=== PATIENT | female | born 1995 | race African-American/Black ===

== ENCOUNTER 2016-07-02 06:28 | Inpatient (IN) ==
[2016-07-02] MEDS ORDERED: BUTORPHANOL 2 MG/ML VIAL IV PRN (06:58)
[2016-07-02] MEDS ORDERED: ONDANSETRON 4 MG/2 ML VIAL IV PRN (06:58)
[2016-07-02] MEDS ORDERED: LACTATED RINGERS 500 ML IV PRN (06:58)
[2016-07-02] MEDS: LACTATED RINGERS 1,000 ML IV SCH ×2 (07:08→16:08)
[2016-07-02 07:17] LABS: Basophils % 0.2 % (0.0-0.8); Eosinophils # 0.1 10*3/uL (0.0-0.87); Hemoglobin 9.8 GM/DL (12.0-16.0); Immature Granulocytes % 0.7 %; Immature Granulocytes Absolute 0.08 #; Lymphocytes # 1.7 10*3/uL (1.4-4.0); Lymphocytes % 15.3 % (21.3-54.2); Mean Corpuscular HGB Conc 32.7 GM/DL (32-36); Mean Corpuscular Hemoglobin 26 PG (27-34); Mean Corpuscular Volume 80.6 FL (87-102); Mean Platelet Volume 9.3 FL (9.6-12.0); Monocytes % 8.5 % (1.7-12.7); Neutrophils # 8.3 10*3/uL (1.4-7.4); Neutrophils % 74.3 % (38.7-73.9); Platelet Count 252 T/CUMM (130-400); Red Blood Count 3.72 MC/CUMM (3.8-5.5); Red Cell Distribution Width 14.9 % (9.3-17.3); White Blood Count 11.2 T/CUMM (4-12)
[2016-07-02] MEDS: OXYTOCIN/LR 20 UNIT/1,000 ML BAG IV SCH (07:33)
[2016-07-02] MEDS ORDERED: FAMOTIDINE 20 MG/2 ML VIAL IV ONE (16:39)
[2016-07-02] MEDS ORDERED: PROMETHAZINE 25 MG/1 ML VIAL IM ONE (16:39)
[2016-07-02] MEDS ORDERED: CITRIC ACID/SODIUM CITRATE 30 ML UDCUP PO ONE (16:39)
[2016-07-02] MEDS ORDERED: hydrOXYzine HCL 25 MG/1 ML VIAL IM PRN (16:39)
[2016-07-02] MEDS ORDERED: ePHEDrine 50 MG/ML AMP IV PRN (16:39)
[2016-07-02] MEDS ORDERED: fentaNYL 2 MCG/ROPIV 0.2% EPID 150 ML EPIDURAL SCH (16:39)
[2016-07-02] MEDS ORDERED: diphenhydrAMINE 50 MG/1 ML VIAL IV PRN ×2 (16:39)
[2016-07-02 18:47] LABS: Apearance,Urine CLEAR (Clear); Bilirubin,Urine Negative (Negative); Blood, Urine Small mg/dL (Negative); Glucose,Urine (UA) Negative (Negative); Ketones,Urine 80 mg/dL (Negative); Mucus,Urine Occasional /LPF (Occasional); Nitrite,Urine Negative (Negative); Protein,Urine Negative; RBC,Urine 3 /HPF (0-4); Squamous Epithelial Cell,Urine Occasional /HPF (0-10); Urine Color Yellow (Yellow); Urine Specific Gravity 1.014 (1.001-1.035); Urine Urobilinogen < 2.0 EU/DL (0.2-1.0); WBC,Urine <1 /HPF (0-6)
[2016-07-02] MEDS ORDERED: LIDOCAINE 1% 50 ML VIAL ONE (23:58)
[2016-07-02] MEDS ORDERED: METHYLERGONOVINE 0.2 MG/1 ML AMP ONE (23:58)
[2016-07-03] MEDS ORDERED: miSOPROStol 200 MCG TABLET ONE (00:57)
[2016-07-03] MEDS: OXYTOCIN/LR 20 UNIT/1,000 ML BAG IV SCH (01:00)
[2016-07-03] MEDS ORDERED: LANOLIN 50% CREAM 0.3 OZ TUBE TOP PRN (01:39)
[2016-07-03] MEDS ORDERED: MEASLES/MUMPS/RUBELLA VACCINE 0.5 ML VIAL SUBCUT ONE (01:39)
[2016-07-03] MEDS ORDERED: RHO(D) IMMUNE GLOBULIN 300 MCG SYRINGE IM ONE (01:39)
[2016-07-03] MEDS ORDERED: OXYTOCIN/LR 20 UNIT/1,000 ML BAG IV ONE (01:39)
[2016-07-03] MEDS ORDERED: oxyCODONE/ACETAMINOPHEN 5-325 MG TABLET PO PRN (01:39)
[2016-07-03] MEDS ORDERED: WITCH HAZEL PADS 100/JAR TOP PRN (01:39)
[2016-07-03] MEDS ORDERED: ONDANSETRON 4 MG/2 ML VIAL IV PRN (01:39)
[2016-07-03] MEDS ORDERED: HYDROCORTISONE 2.5% RECTAL CREAM 30 GM TUBE TOP PRN (01:39)
[2016-07-03] MEDS ORDERED: BENZOCAINE 20%/MENTHOL 0.5% SPRAY 56 GM CAN TOP PRN (01:39)
[2016-07-03] MEDS ORDERED: BISACODYL 10 MG SUPP RECTAL PRN (01:39)
[2016-07-03] MEDS ORDERED: DIPH/TET/ACEL PERT BOOSTER VACCINE 0.5 ML VIAL IM ONE (01:39)
[2016-07-03] MEDS ORDERED: ACETAMINOPHEN 325 MG TABLET PO PRN (01:39)
--- NOTE | 2016-07-03 01:39 | History and Physical Update ---
History and Physical Update - Dictation Physical: refer to scanned H&P - Physical Exam Mental Status: alert and oriented Heart: regular rate and rhythm Lung: clear to auscultation Abdomen: within normal limits Vitals: within normal limits History and Physical Changes: at 40w1d by 30 wk US , late onset care, otherwise no complications , admitted for induction. GBS negative.
--- NOTE | 2016-07-03 07:41 | Discharge Summary ---
Hospital Course - Hospital Course Hospital Course: Pt admitted for induction at 40w1d with late care. She delivered on via vacuum assisted delivery. Second degree MLE with ext into capsule and left lateral vaginal wall lacerations repaired. Her course has been unremarkable. Discharge Plan - Discharge Data Disposition: Disch To Home/Self Care Condition at Discharge: Stable Discharge Diet: regular diet Activity: other (pelvic rest x 6 wks) Hygiene: may shower Driving: no restrictions Contact your physician if you experience:: fever over 101, Difficulty voiding, Redness or swelling, Nausea/Vomiting, Shortness of breath, Bleeding, pain uncontrolled by pain medications - Discharge Medications New Ibuprofen Tab [Motrin Tab] 800 mg PO Q6H PRN #30 tablet PRN Reason: Pain Moderate (4-7) oxyCODONE/ACETAMINOPHEN 5-325 [Percocet 5-325] 2 tablet PO Q6H PRN #20 tablet PRN Reason: Pain Severe (8-10) No Action Vit/Iron Fumarate/FA [ Tablet] 1 each PO DAILY - Follow Up or Referral Follow Up: Rain Eaton DO [Physician] - - Forms/Instructions Exam - Constitutional Vitals: Period Temp Pulse Resp BP Sys/Rose Pulse Ox Last 24 Hr 97.0 F-98.8 F 82-123 18-22 119-146/56-91 97-99 General appearance: morbidly obese - Head Head exam: Present: normal inspection, normocephalic - Eye Eye exam: Present: EOMI - Respiratory Respiratory exam: Present: clear to auscultation bilaterally - Cardiovascular Cardiovascular exam: Present: regular rate and rhythm - GI/Abdominal GI/Abdominal exam: Present: soft (fundus firm, nontender) - Extremities Exam Extremities exam: Present: normal inspection - Neurological Exam Neurological exam: Present: alert, oriented X3 - Psychiatric Psychiatric exam: Present: normal affect, normal mood - Skin Skin exam: Present: normal color, warm Discharge Results Procedures and tests throughout hospitalization: Pending Orders 07/04/16 04:00 Comp Blood Count Auto Diff IN AM Labs on day of discharge: Labs from last 24 hours 07/02/16 07/02/16 17:30 07:09 Urine Color Yellow Urine Appearance Clear Urine pH 6.0 Ur Specific Waves 1.014 Urine Protein Negative Urine Glucose (UA) Negative Urine Ketones 80 Urine Blood Small Urine Nitrate Negative Urine Bilirubin Negative Urine Urobilinogen < 2.0 H Urine Leukocytes Negative Urine RBC 3 Urine WBC <1 Ur Squamous Epith Cells Occasional Urine Mucus Occasional Ur Culture Indicated? Not indicated Blood Type O POSITIVE Antibody Screen Negative DS: Provider Date of admission: 07/02/16 06:59 Primary care physician: . No PCP Attending physician on admission: Rain Eaton DO Consults: 07/02/16 07:56 Consult to Dietitian [CONS] Routine Reason for Dietitian: Dietary Consult 07/03/16 01:39 Consult to Yarder Operator [CONS] Routine Consult Yarder Operator: Breast Feeding Discharging clinician: Rain Eaton DO Expected date of discharge: 07/05/16
--- NOTE | 2016-07-03 08:18 | Anesthesia ---
Anesthesia Post OP - Post Ansesthetic Evaluation Patient seen in post op: Yes Resp: within normal limits CV: within normal limits Mental: within normal limits Temp: within normal limits [id number]: within normal limits Nausea and Vomiting: within normal limits Pain: within normal limits
[2016-07-03] MEDS: DOCUSATE SODIUM 100 MG CAPSULE PO SCH (21:33)
[2016-07-03] MEDS: oxyCODONE/ACETAMINOPHEN 5-325 MG TABLET PO PRN (22:05)
[2016-07-04] MEDS: oxyCODONE/ACETAMINOPHEN 5-325 MG TABLET PO PRN ×3 (04:00→19:40)
[2016-07-04 06:38] LABS: Basophils % 0.2 % (0.0-0.8); Eosinophils # 0.2 10*3/uL (0.0-0.87); Eosinophils % 1.4 % (0.00-10.9); Hematocrit 20.8 VOL% (35.7-47.0); Hemoglobin 6.6 GM/DL (12.0-16.0); Immature Granulocytes % 0.7 %; Immature Granulocytes Absolute 0.08 #; Lymphocytes # 2.3 10*3/uL (1.4-4.0); Mean Corpuscular HGB Conc 31.7 GM/DL (32-36); Mean Corpuscular Hemoglobin 26 PG (27-34); Mean Corpuscular Volume 83.2 FL (87-102); Mean Platelet Volume 10.1 FL (9.6-12.0); Monocytes % 8.3 % (1.7-12.7); Neutrophils # 8.3 10*3/uL (1.4-7.4); Neutrophils % 70.4 % (38.7-73.9); Platelet Count 180 T/CUMM (130-400); Red Cell Distribution Width 14.9 % (9.3-17.3); White Blood Count 11.8 T/CUMM (4-12)
[2016-07-04] MEDS: FERROUS SULFATE 325 MG TABLET PO SCH ×2 (09:02→20:00)
[2016-07-04] MEDS: DOCUSATE SODIUM 100 MG CAPSULE PO SCH ×2 (09:02→20:00)
--- NOTE | 2016-07-04 11:49 | Pathology Report from [facility] ---
ACCESSION # : [id number] PATIENT NAME : Davy Ashley ORDERING DR : REKHA LANDERS CLINICAL HX: IUP 40 weeks, late care POST-OP DX: Same SPECIMEN INFO: Placenta GROSS DESCRIPTION: Received fresh labeled "DAVY ASHLEY & PLACENTA" is a 553 gm placenta measuring 19.5 x 14.5 x 3.0 cm. The membranes are pink cardenas and translucent. The umbilical cord measures 51.0 cm, contains three vessels and is pericentrally inserted. The surface is blue colvin with a few small areas of subchorionic fibrin noted. The maternal surface is intact with a few calcifications and an area of fibrin noted measuring 2.3 x 1.6 cm. Sections submitted A- membranes and cord, B- and maternal surfaces. DIAGNOSIS FOR DAVY ASHLEY: PLACENTA, MEMBRANES, UMBILICAL CORD: Focal placental infarction with dystrophic calcification, attached fibrin clot. Tri- vessel umbilical cord, pericentrally inserted. Membranes with focal acute and chronic inflammation and attached blood. SERVICE DATE: 07/03/2016 REPORT DATE: 07/04/2016 PATHOLOGIST: Renee Kong
[2016-07-04] MEDS: IBUPROFEN 800 MG TABLET PO PRN (19:40)
[2016-07-05] MEDS: IBUPROFEN 800 MG TABLET PO PRN ×2 (02:10→12:00)
[2016-07-05] MEDS: oxyCODONE/ACETAMINOPHEN 5-325 MG TABLET PO PRN ×2 (02:10→12:00)
[2016-07-05 07:33] VITALS: BP 117/79
[2016-07-05] MEDS: DOCUSATE SODIUM 100 MG CAPSULE PO SCH (09:30)
[2016-07-05] MEDS: FERROUS SULFATE 325 MG TABLET PO SCH (09:30)
== END 2016-07-05 15:20 | disposition home or self-care (01) | DRG 774 ==
LOC: N.LDOUT 06:28 → N.LD 06:39 → N.OB 07-03 03:30
PROVIDERS: ADMIT Obstetrics & Gynecology; ATTEND Obstetrics & Gynecology